=== PATIENT | female | born 2000 | race African-American/Black ===

== ENCOUNTER 2025-10-27 16:51 | Emergency (ER) | payer SELFPAY ==
[2025-10-27 16:52] VITALS: BP 155/89; PULSE 82; RESP 18; TEMP 36.7; O2SAT 99; BMI 42.7
--- NOTE | 2025-10-27 17:15 | EDS_ITS ---
HPI History of Present Illness Chief Complaint: Abd Pain Detail of Chief Complaint: Intermittent lower abdominal pain times weeks Informant: patient and spouse/S.O. Onset/Context/Timing Onset: Weeks Context: Sudden Onset Timing: Intermittent Quality: Discomfort Location: Predominantly suprapubic Current Severity: Gone Maximum Severity: Moderate Worsened by: Nothing Relieved by: Nothing Associated Symptoms Associated Symptoms: Last menses 06/24/2025, frequency, breast tenderness Narrative Narrative: Patient is a 25-year-old female. She is status post salpingectomy and oophorectomy on the left due to a large cyst that she reports was 33 cm in size. She does not use any form of control. Her last menses was June 24, 2025. She is sexually active. Does not use any form control. She does endorse frequency without urgency, hematuria or dysuria. She denies vaginal discharge or vaginal bleeding. She denies dyspareunia. She denies flank pain. She denies fever, chills night sweats. She denies upper respiratory tract infectious symptoms. She denies cardiac or respiratory symptoms. Prior similar symptoms: No Recent Illness/Hospitalization: No PFSH PFSH Medical History Anxiety Smoker Home Medications ?Medication ?Instructions ?Recorded ?Last Taken ?Type nitrofurantoin 100 mg PO Q12 #10 CAPSULES 1 12/28/24 Unknown Rx monohydrate/macrocrystals 100 mg capsule Allergy/AdvReac Type Severity Reaction Status Date / Time No Known Allergies Allergy Verified 10/27/25 16:54 Social History (Updated 10/27/25 @ 17:[address] Grover Morrissey MD) household members: significant other Smoking Status: Current every day smoker tobacco type: cigarettes and smokeless tobacco ROS ROS ED Constitutional Constitutional ED: Reports other Details: Her pants have been tight to her 15 on her last several weeks. ; Denies chills, fever(s), subjective, sweats or weight loss Eyes Eyes: Denies blurry vision, change in vision or diplopia ENT ENT ED: Denies ear pain, rhinorrhea or sore throat Cardiovascular Cardiovascular: Denies chest pain, orthopnea, palpitations or paroxysmal nocturnal dyspnea Respiratory/Chest Respiratory/Chest: Denies cough, dyspnea, dyspnea on exertion, orthopnea, paroxysmal nocturnal dyspnea or sputum Gastrointestinal Gastrointestinal: Reports abdominal pain and constipation; Denies diarrhea, melena, nausea or vomiting Genitourinary Genitourinary ED: Reports urinary frequency; Denies dysuria or hematuria Musculoskeletal Musculoskeletal: Denies arthralgias, back pain or myalgias Integumentary Denies rash Neurologic Neurologic: Denies headache(s), paresthesias or weakness Endocrine Endocrinology: Denies cold intolerance or heat intolerance Hematologic/Lymphatic Hematologic/Lymphatic: Reports systems reviewed and no addt'l complaints, except as documented EXAM Physical Exam Const Vital Signs: 10/27/25 16:52 Temperature 98.1 F Temperature Source Oral Pulse Rate 82 Respiratory Rate 18 Blood Pressure 155/89 H Blood Pressure Mean 111 Pulse Ox 99 Oxygen Delivery Method Room Air Positive well nourished, well developed, obese and unkempt General Appearance ED: unkempt, well developed and NAD; Negative for pallor Nutritional Appearance: obese HEENT Reports moist mucous membranes HEENT Narrative: Head is atraumatic and normocephalic. Ears are normal Eyes PERRL and EOMs intact bilaterally General Eye ED: Negative for pale conjunctiva or scleral icterus Resp normal respiratory effort and clear to auscultation bilaterally Cardio regular rate, regular rhythm, S1 normal heart sound, S2 normal heart sound and no murmurs GI normal to inspection, nondistended, normoactive bowel sounds, non-tender, non- distended and no masses; Negative for hepatosplenomegaly Back/Spine no CVA tenderness Extremity normal to inspection General Extremety ED: Negative for edema or tenderness General Extremity: Negative for edema Neuro oriented x3 and CN's II-XII intact bilaterally Sensorium / Orientation: alert Psych mental status grossly normal Appearance: unkempt Skin no rashes or lesions noted, no wounds and skin turgor normal General Skin Exam: elasticity normal; Negative for jaundice or pallor MDM MDM MDM Narrative Medical decision making narrative: Will review prior records determine patient has history of hypertension so the pressure is 155/89. Patient states she is done for Hallpike test which were all negative. Patient has symptoms consistent with , however. If she is we will do a more complete neurologic exam and obtain additional blood work. History & Record Review Additional record(s) reviewed:: No prior records Lab Data Attestation: I reviewed the patient's lab results. Lab results narrative: White count slightly elevated 12.5 thousand. There is no shift. Urinalysis reveals 0-5 WBCs with 0-5 RBCs and 1+ bacteria. Since patient is symptomatic we will treat with Macrobid. She was informed that her test is negative. Labs: Laboratory Results - last 24 hr 10/27/25 10/27/25 17:05 17:40 WBC 12.5 H RBC 4.77 Hgb 12.5 Hct 39.4 MCV 82.6 MCH 26.2 L MCHC 31.7 L RDW Std Deviation 42.3 RDW Coeff of Ning 14.1 Plt Count 334 MPV 9.4 Immature Gran % (Auto) 0.300 Neut % (Auto) 64.3 Lymph % (Auto) 27.5 [place] % (Auto) 6.9 Eos % (Auto) 0.7 Baso % (Auto) 0.3 Absolute Neuts (auto) 8.0 H Absolute Lymphs (auto) 3.43 Nucleated RBC % 0 Serum , Qual NEGATIVE Urine Color Yellow Urine Clarity Clear Urine pH 6.0 Ur Specific [place] 1.015 Urine Protein 15 H Urine Glucose (UA) Normal Urine Ketones Negative Urine Occult Blood Negative Urine Nitrite Negative Urine Bilirubin Negative Urine Urobilinogen Normal Ur Leukocyte Esterase Negative Urine RBC 0-5 SEEN Urine WBC 0-5 SEEN Ur Squamous Epith Cells 5-10 SEEN Urine Bacteria 1+ Urine Mucus 0 SEEN Discharge Plan Triage Chief Complaint: Abd Pain ED Provider: Grover Morrissey Dx/Rx/DC Orders Clinical Impression: Suprapubic discomfort, Acute cystitis without hematuria, Adult BMI 40.0-44.9 kg/sq m, Elevated blood-pressure reading without diagnosis of hypertension, Amenorrhea Instructions: ED Hypertension, To Be Confirmed, ED Cystitis Female Adult, ED Amenorrhea Prescriptions: New nitrofurantoin monohyd/m-cryst 100 mg capsule 100 mg PO Q12 Qty: 10 0RF [facility], [facility] - 1 Week Activity Restrictions/Additional Instructions: Your blood pressure reading was elevated. You need to follow-up at the [facility] to establish yourself as a new patient for blood pressure monitoring and for gynecologic care. Print Language: Macedonian Disposition Disposition: Home, Self Care
[2025-10-27 17:26] LABS: Color, Urine Yellow (Yellow); Glucose, Dipstick Normal (Normal); Ketone-Dipstick Negative (Negative); Leukocyte Esterase-Dipstick Negative /ul (Negative); Mucous, Urine 0 SEEN /hpf (<or=2+); Nitrite-Dipstick Negative (Negative); Occult Blood-Urine Negative /ul (Negative); Protein-Dipstick 15 mg/dl (Negative); Specific Gravity, Urine 1.015 (1.002-1.030); Urine Bilirubin Dipstick Negative (Negative)
[2025-10-27 17:40] LABS: Squamous Epithelial Cells - UA 5-10 SEEN /hpf (5-10)
[2025-10-27 17:41] LABS: Red Blood Cells-Urine 0-5 SEEN /hpf (0-5)
[2025-10-27 17:49] LABS: Hematocrit 39.4 % (37-47); Hemoglobin 12.5 g/dL (12.0-15.0); Immature Granulocytes Count 0.040 X10^3/uL (0.0-0.0); Mean Corp Hgb Conc 31.7 g/dL (32-36); Mean Corpuscular Volume 82.6 fL (81-99); Mean Platelet Vol. 9.4 fl (6.2-12.0); NRBC Flagged by Analyzer 0 % (0-5); Platelet Count 334 K/mm3 (150-450); RBC Distribution Width CV 14.1 % (11.6-14.6); RBC Distribution Width SD 42.3 fl (35.1-43.9); Red Blood Count 4.77 M/mm3 (4.2-5.4); White Blood Count 12.5 K/mm3 (4.4-11.0)
[2025-10-27 17:59] LABS: Internal QC Validated? YES +Cl - CLEAR BKGD
[2025-10-27 18:00] LABS: Pregnancy, Serum, hCG Quali. NEGATIVE Negative
[2025-10-27 18:22] VITALS: BP 134/83; PULSE 66; RESP 18; TEMP 36.9; O2SAT 100
== END 2025-10-27 18:26 | disposition home or self-care (01) ==
PROVIDERS: Emergency Provider Emergency Medicine; Visit Provider Emergency Medicine
DX: R10.8A3 Suprapubic tenderness (principal); N30.00 Acute cystitis without hematuria; N91.2 Amenorrhea, unspecified; F17.220 Nicotine dependence, chewing tobacco, uncomplicated; R03.0 Elevated blood-pressure reading, without diagnosis of hypertension; F17.210 Nicotine dependence, cigarettes, uncomplicated
CPT/HCPCS: 81001; 84703; 85025; 99283; A4216